=== PATIENT | male | born 2000 | race Caucasian/White ===

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

== ENCOUNTER 2019-03-03 08:47 | Observation (INO) | payer BC ==
[~2019-03-03] VITALS: Ht 180.3 cm; Wt 69.8 kg
[2019-03-03] VITALS (7 sets, daily range): BP systolic 78–111; BP diastolic 48–65
[~2019-03-03 08:47] MED LIST changes: +BACTRIM DS1 TAB PO; +CVS OMEPRAZOLE20 MG PO
[2019-03-03 09:24] LABS: HEMATOCRIT 44.8 % (39.0-50.0); HEMOGLOBIN 14.8 g/dl (14.0-18.0); IMMATURE GRANULOCYTES 0.2 % (0.0-5.0); MEAN CELL VOLUME 89.2 fL CALC (80.0-100.0); MEAN CORPUSCULAR HGB 29.5 pG CALC (26.0-32.0); NEUT# 2.78 thou/uL (1.82-7.42); RED BLOOD COUNT 5.02 mill/uL (4.70-6.10); RED CELL DISTRI WIDTH 13.5 % (11.5-15.5)
[2019-03-03 09:50] LABS: ALBUMIN 4.9 g/dL (3.2-5.0); ALKALINE PHOSPHATASE 76 u/l (38-126); ANION GAP 16 (6-22 (CALC)); BUN 18 mg/dL (8-21); BUN/CREATININE RATIO 22 (12-20 (CALC)); CARBON DIOXIDE 27 mmol/l (22-30); CHLORIDE 102 mmol/l (95-108); CREATININE 0.8 mg/dL (0.7-1.3); GFR > 60 ML/MIN (>=60 (CALC)); GFR FOR AFR.AMER. > 60 ML/MIN (>=60 (CALC)); POTASSIUM 3.8 mmol/l (3.5-5.1); SGOT/AST 28 u/l (17-59); SODIUM 142 mmol/l (137-146); TOTAL PROTEIN 7.8 g/dL (6.3-8.2)
[2019-03-03 09:57] LABS: BILIRUBIN, TOTAL 1.4 mg/dL (0.0-1.4)
[2019-03-03 12:22] LABS: COCAINE NEGATIVE (NEGATIVE); METHADONE NEGATIVE (NEGATIVE); TETRAHYDROCANNABIONOL POSITIVE (NEGATIVE)
[2019-03-03 12:23] LABS: BARBITURATES NEGATIVE (NEGATIVE); OXCYCODONE NEGATIVE (NEGATIVE); TRICYLIC ANTIDEPRESSANTS NEGATIVE (NEGATIVE)
== END 2019-03-03 18:30 | disposition home or self-care (01) | DRG 581 ==
LOC: ED 08:47 → ED-I 08:50 → ED 08:50 → MS2 09:15
PROVIDERS: Emergency Medicine; ADMIT Surgery; ATTEND Surgery
PROC: 0J980ZZ Drainage of Abdomen Subcutaneous Tissue and Fascia, Open Approach (ICD-10-PCS; principal; 2019-03-03)
DX: L02.211 Cutaneous abscess of abdominal wall (principal)
CPT/HCPCS: G0378; J2710

== ENCOUNTER 2019-11-27 | Emergency (ER) | payer BC ==
[2019-11-27 09:45] LABS: URINE BILIRUBIN - DIPSTICK NEGATIVE (NEGATIVE); URINE BLOOD DIPSTICK NEGATIVE (NEGATIVE); URINE COLOR YELLOW; URINE GLUCOSE - DIPSTICK NEGATIVE (NEGATIVE); URINE KETONE NEGATIVE (NEGATIVE); URINE LEUK ESTERASE NEGATIVE (NEGATIVE); URINE NITRITE - DIPSTICK NEGATIVE (Negative); URINE PROTEIN - DIPSTICK NEGATIVE (NEG-TRACE)
[2019-11-27 10:10] LABS: HEMATOCRIT 46.3 % (39.0-50.0); HEMOGLOBIN 15.2 g/dl (14.0-18.0); IMMATURE GRANULOCYTES 0.2 % (0.0-5.0); MEAN CELL VOLUME 94.3 fL CALC (80.0-100.0); MEAN CORPUSCULAR HGB CONC 32.8 g/L CALC (32.0-36.0); NEUT# 6.95 thou/uL (1.82-7.42); RED BLOOD COUNT 4.91 mill/uL (4.70-6.10); RED CELL DISTRI WIDTH 11.9 % (11.5-15.5)
[2019-11-27 10:27] LABS: ALBUMIN 4.6 g/dL (3.2-5.0); ALKALINE PHOSPHATASE 73 u/l (38-126); ANION GAP 14 (6-22 (CALC)); BILIRUBIN, TOTAL 0.9 mg/dL (0.0-1.4); BUN 19 mg/dL (9-20); BUN/CREATININE RATIO 24 (12-20 (CALC)); CARBON DIOXIDE 28 mmol/l (22-30); CHLORIDE 101 mmol/l (95-108); CREATININE 0.8 mg/dL (0.7-1.3); GFR > 60 ML/MIN (>=60 (CALC)); GFR FOR AFR.AMER. > 60 ML/MIN (>=60 (CALC)); LIPASE 284 u/l (23-300); SGOT/AST 24 u/l (17-59); SODIUM 138 mmol/l (137-146); TOTAL PROTEIN 7.8 g/dL (6.3-8.2)
[2019-11-27 10:29] LABS: POTASSIUM 4.6 mmol/l (3.5-5.1)
[2019-11-27] MEDS ORDERED: PROTONIX40 M2 PO (10:53)
[2019-11-27] MEDS ORDERED: ONDANSETRON4 MG PO (10:53)
== END 2019-11-27 11:09 | disposition home or self-care (01) | DRG 392 ==
DX: K29.70 Gastritis, unspecified, without bleeding (principal)
CPT/HCPCS: S0164

== ENCOUNTER 2022-08-01 20:07 | Emergency (ER) | payer SELFPAY ==
[~2022-08-01] VITALS: Ht 180.3 cm; Wt 75.0 kg
[~2022-08-01 20:07] MED LIST changes: +ONDANSETRON4 MG PO; +PROTONIX40 M2 PO
[2022-08-01 23:45] VITALS: BP 132/85
== END 2022-08-01 23:45 | DRG 605 ==
LOC: ED 20:07
DX: S91.012A Laceration without foreign body, left ankle, initial encounter (principal); W29.3XXA Contact with powered garden and outdoor hand tools and machinery, initial encounter; Y93.H9 Activity, other involving exterior property and land maintenance, building and construction; Y92.007 Garden or yard of unspecified non-institutional (private) residence as the place of occurrence of the external cause